=== PATIENT | female | born 1950 | race Caucasian/White ===

== ENCOUNTER 2018-06-12 03:54 | Emergency (ER) | payer OTHER ==
[~2018-06-12] VITALS: Ht 154.9 cm; Wt 93.0 kg
[2018-06-12 04:05] VITALS: Ht 154.9 cm; Wt 93.0 kg
[2018-06-12 05:04] LABS: microscopic required? NO
[2018-06-12 05:11] LABS: UA SPECIFIC GRAVITY <=1.005 (1.005-1.035); urine erythrocyte NEGATIVE (NEGATIVE)
[2018-06-12 05:20] LABS: CALCIUM 9.8 mg/dL (8.5-10.1); CARBON DIOXIDE 30.2 mmol/L (21-32); CREATININE SERUM 1.5 mg/dL (0.6-1.0); POTASSIUM SERUM 3.6 mmol/L (3.5-5.1)
[2018-06-12 05:41] VITALS: BP 129/60
== END 2018-06-12 05:41 | disposition home or self-care (01) ==
LOC: ED 03:54
PROVIDERS: Emergency Medicine
DX: R35.0 Frequency of micturition (principal); I10 Essential (primary) hypertension; E11.9 Type 2 diabetes mellitus without complications; Z90.89 Acquired absence of other organs
CPT/HCPCS: 82962